=== PATIENT | female | born 1970 | race Caucasian/White ===

== ENCOUNTER → 2023-11-28 10:42 | Outpatient (POV) | payer MEDICAID, SELFPAY ==
[2023-11-28 11:12] VITALS: BP 126/65; PULSE 103; RESP 20; O2SAT 94; BMI 36.3
--- NOTE | 2023-11-28 12:28 | EXP.PAIN.OV ---
HPI Data of Consult Patient: new to practice Consult date: 11/28/23 Requesting Physician: Viji Ayala APRN Consult Narrative Reason for consult: Low back pain, leg pain History of present illness: Ms. Fuentes is a 53 year old female who presents today from the [facility] ([facility] location. They were treating the patient for degenerative disc disease of lumbar spine with lumbar radiculopathy symptoms. Today she rates her pain a 10 out of 10. Patient states her pain still continues to be in her low back with radiating symptoms into her lower extremities. Patient does state that this has been going on for years but progressively worsening over the last couple of months. Patient does describe it as a achy sensation with occasional sharp shooting pains and numbness and tingling into her lower extremities. Patient denies any specific trauma or injury that initially led to the symptoms. Patient has tried fwby-fyf-waydtsu medications such as Tylenol and ibuprofen along with heat and ice and topicals with no additional relief. Patient has had physical therapy in the past with no additional improvement. Patient denies ever seeing a neurosurgeon. Patient is currently managed with pregabalin 100 mg 3 times a day and alprazolam 1 mg from outside providers. Patient does state the pain has caused her to have no quality of life and she is in constant pain. She is interested in any help we may be able to provide. Patient did have a lumbar epidural steroid injection done at the [facility] location of L4-L5 back in July however she stated that it ended up only helping for a few days and then had worsening pain after. Her Sergio has been reviewed and is appropriate. CC: Viji Ayala APRN [facility] Disclaimer: The information contained in this section may have been updated after the patient was seen, as this information can be updated by other users. Medical History (Updated 11/28/23 @ 12:35 by Viji Ayala APRN) ADHD Anxiety Asthma Bipolar 1 disorder COPD (chronic obstructive pulmonary disease) Degenerative disc disease Fibromyalgia GERD (gastroesophageal reflux disease) HLD (hyperlipidemia) Osteoarthritis Surgical History (Updated 11/28/23 @ 11:14 by Aurea Cheney RN) H/O: hysterectomy History of carpal tunnel surgery Hx of appendectomy Hx of cholecystectomy Family History (Updated 11/28/23 @ 11:14 by Aurea Cheney RN) Other No significant family history Social History (Updated 11/28/23 @ 11:14 by Aurea Cheney RN) Smoking Status: Current every day smoker alcohol intake: never current occupational status: other Travel in the last 8 weeks: None Review of Systems Review of Systems Review of systems:: pertinent systems reviewed and negative unless documented below Review of systems (narrative): Review of Systems: General: No recent weight changes, no fever, no sleep disturbances Respiratory: No cough, no shortness of air, no recurring pulmonary infections Cardiovascular/peripheral vascular: No chest pain, no palpitations, no edema, no shortness of breath Gastrointestinal: No new onset incontinence, normal bowel movements reported Genitourinary: No new onset incontinence Musculoskeletal: Low back pain, leg pain Psychiatric: [Normal mood/affect] Neurological: [Denies weakness in extremities], [denies balance issues] Meds Home Medications and Allergies Home Medications Medication Instructions Recorded Confirmed Type albuterol sulfate 2.5 mg/3 mL 2.5 mg inhalation QID 11/28/23 11/28/23 History (0.083 %) solution for nebulization budesonide-formoterol HFA 160 2 puff inhalation BID 11/28/23 11/28/23 History mcg-4.5 mcg/actuation aerosol inhaler budesonide-formoterol HFA 160 2 puff inhalation BID 11/28/23 11/28/23 History mcg-4.5 mcg/actuation aerosol inhaler (Symbicort) cholecalciferol (vitamin D3) 50 50 mcg PO DAILY 11/28/23 11/28/23 History mcg (2,000 unit) capsule cyanocobalamin (vitamin B-12) 1,000 mcg PO DAILY 11/28/23 11/28/23 History 1,000 mcg tablet (Vitamin B-12) duloxetine 60 mg capsule,delayed 60 mg PO BID 11/28/23 11/28/23 History release ergocalciferol (vitamin D2) 1,250 1,250 mcg PO DAILY 11/28/23 11/28/23 History mcg (50,000 unit) capsule hydrochlorothiazide 25 mg tablet 25 mg PO DAILY 11/28/23 11/28/23 History hydroxyzine pamoate 100 mg capsule 100 mg PO TIDP PRN Anxiety 11/28/23 11/28/23 History ipratropium 0.5 mg-albuterol 3 mg 3 ml inhalation TIDP PRN SOA 11/28/23 11/28/23 History (2.5 mg base)/3 mL nebulization soln levothyroxine 50 mcg tablet 50 mcg PO DAILY 11/28/23 11/28/23 History loratadine 10 mg tablet (Allergy 10 mg PO DAILY 11/28/23 11/28/23 History Relief (loratadine)) montelukast 10 mg tablet 10 mg PO DAILY 11/28/23 11/28/23 History omeprazole 40 mg capsule,delayed 40 mg PO AC 11/28/23 11/28/23 History release potassium chloride 20 mEq 20 meq PO BID 11/28/23 11/28/23 History tablet,extended release pregabalin 100 mg capsule 100 mg PO TID 11/28/23 11/28/23 History ropinirole 5 mg tablet 5 mg PO HS 11/28/23 11/28/23 History rosuvastatin 5 mg tablet 5 mg PO HS 11/28/23 11/28/23 History varenicline 1 mg tablet 1 mg PO BID 11/28/23 11/28/23 History ziprasidone HCl 60 mg capsule 60 mg PO BID 11/28/23 11/28/23 History ziprasidone HCl 60 mg capsule 60 mg PO BID 11/28/23 11/28/23 History (Maria Luisa) New Prescriptions to Start Prescriptions: Allergies Allergy/AdvReac Type Severity Reaction Status Date / Time amoxicillin Allergy Verified 11/28/23 11:33 aspirin Allergy Verified 11/28/23 11:33 azithromycin Allergy Verified 11/28/23 11:33 bupropion Allergy Verified 11/28/23 11:33 celecoxib Allergy Verified 11/28/23 11:33 cephalexin Allergy Verified 11/28/23 11:33 clavulanic acid Allergy Verified 11/28/23 11:33 doxepin Allergy Verified 11/28/23 11:33 escitalopram Allergy Verified 11/28/23 11:33 fentanyl Allergy Verified 11/28/23 11:33 fluoxetine Allergy Verified 11/28/23 11:33 guaifenesin Allergy Verified 11/28/23 11:33 haloperidol Allergy Verified 11/28/23 11:33 levofloxacin Allergy Verified 11/28/23 11:33 lidocaine Allergy Verified 11/28/23 11:33 lithium Allergy Verified 11/28/23 11:33 meclizine Allergy Verified 11/28/23 11:33 ondansetron Allergy Verified 11/28/23 11:33 paroxetine Allergy Verified 11/28/23 11:33 pentazocine Allergy Verified 11/28/23 11:33 phenelzine Allergy Verified 11/28/23 11:33 quetiapine Allergy Verified 11/28/23 11:33 quinine Allergy Verified 11/28/23 11:33 ranitidine Allergy Verified 11/28/23 11:33 sertraline Allergy Verified 11/28/23 11:33 Sulfa (Sulfonamide Allergy Verified 11/28/23 11:33 Antibiotics) topiramate Allergy Verified 11/28/23 11:33 tramadol Allergy Verified 11/28/23 11:33 venlafaxine Allergy Verified 11/28/23 11:33 zolpidem Allergy Verified 11/28/23 11:33 naproxen AdvReac Verified 11/28/23 11:33 Objective Vital signs: Pulse Resp BP Pulse Ox O2 Del Method 103 H 20 126/65 94 L Room Air 11/28/23 11:12 11/28/23 11:12 11/28/23 11:12 11/28/23 11:12 11/28/23 11:12 Narrative: Physical Exam: General: Alert and oriented x3, no acute distress, pleasant and cooperative Lungs: Respirations even and unlabored, symmetrical chest expansion Eyes: PERRL Musculoskeletal: Flexion and extension of lumbar [spine] somewhat guarded secondary to pain, [antalgic gait noted] Neurological: Speech clear, no gross sensory deficit Additional findings Additional findings: MRI lumbar spine without contrast 09/03/2023 Findings: Paraspinal soft tissues grossly unremarkable. Marrow signal is generally age-appropriate. Distal cord and conus medullaris have a grossly normal appearance with the tip of the conus at the level of L1. T10 through T11 through L3-L4 disc are intact and unremarkable. Foramen are patent. L4-L5: Disc desiccation with mild degenerative narrowing. Minimal disc bulge augmented by a central disc protrusion. Moderate hypertrophic ligament and facet changes. These combined to produce mild spinal stenosis. Disc margin approximately both L5 nerve roots without displacement. Foramen patent. L5-S1: Advanced degenerative narrowing of the disc with desiccation. Severe type I/II degenerative endplate changes with reactive marrow edema in the opposing vertebra as well. There are chronic bilateral L5 pars fractures allowing for grade 2 anterior listhesis of L5 significantly progressed from prior study. Minimal disc bulge slightly eccentric to the right with a small central disc protrusion. No direct nerve root impingement by the disc. Thecal sac distortion. There is severe bilateral foraminal stenosis Assessment and Plan *Assessment and plan (1) Degenerative disc disease, lumbar: Status: Acute Category: Medical Code(s): M51.36 - Other intervertebral disc degeneration, lumbar region (2) Lumbar radiculopathy: Status: Acute Category: Medical Code(s): M54.16 - Radiculopathy, lumbar region (3) Chronic pain syndrome: Status: Acute Category: Medical Code(s): G89.4 - Chronic pain syndrome (4) Lumbar spinal stenosis: Status: Acute Qualifiers: Neurogenic claudication status: with neurogenic claudication Qualified Code(s): M48.062 - Spinal stenosis, lumbar region with neurogenic claudication Category: Medical Code(s): M48.061 - Spinal stenosis, lumbar region without neurogenic claudication Plan Patient continues to experience significant pain throughout her low back and legs with limited range of motion of her lumbar spine. I have discussed with the patient that she may benefit from a lumbar epidural steroid injection at the L5-S1 level due to her findings on her lumbar imaging. Risk and benefits were discussed with the patient however patient does have concerns since this is only a temporary solution. I have also discussed with the patient that I will send her for neurosurgery consult to Dr. Montoya's office for evaluation. I will also send her for a psychological evaluation for possible spinal cord stimulator trial in the future. Risk and benefits of this procedure and educational handouts were given to the patient during today's visit. She is agreeable with this plan of care. I will order the patient a compounded cream. Patient will return to clinic in 1 month for reevaluation of symptoms and plan of care. Patient has been instructed to contact the clinic with any concerns before the next appointment. Dr. Woods has reviewed this note and agrees with this plan of care. This note was dictated using voice recognition software and make contain errors or omissions.
== END ==
LOC: SC.PAIN 10:43
PROVIDERS: Visit Provider Nurse Practitioner Family
DX: M51.16 Intervertebral disc disorders with radiculopathy, lumbar region (principal); G89.4 Chronic pain syndrome; M48.062 Spinal stenosis, lumbar region with neurogenic claudication
CPT/HCPCS: 99202; G0463

== ENCOUNTER 2023-12-25 09:46 | Outpatient (POV) | payer MEDICAID, SELFPAY ==
[2023-12-25 10:16] VITALS: BP 152/65; PULSE 95; RESP 18; O2SAT 92; BMI 36.5
--- NOTE | 2023-12-25 10:40 | EXP.PAIN.SOA ---
[facility] Pain Management SOAP Note Subjective:: Patient is a pleasant 53-year-old female who presents today for follow-up. Today she rates her pain a 9 out of 10. Patient states that she did recently have a fall 2 days ago that ended up spraining her right ankle. Patient does present with the boot on. She does state that she did not go to be evaluated from this fall and states that she did end up landing on her buttocks area. She describes this as a aching, throbbing sensation with shooting pains down into her legs. She does question whether or not if she has done something more severe. Patient states she did get the compounded cream from our last visit and states it did not really seem to help any on her back and legs. Patient is currently managed with pregabalin, alprazolam and methocarbamol from outside providers. Patient does state that she has tried Skelaxin, tizanidine, Flexeril and baclofen with minimal relief. Patient does also state that she is scheduled for her psychological appointment coming up soon. She also states that her appointment with Dr. Montoya is next month. Her Sergio has been reviewed and is appropriate. Review of Systems: General: No recent weight changes, no fever, no sleep disturbances Respiratory: No cough, no shortness of air, no recurring pulmonary infections Cardiovascular/peripheral vascular: No chest pain, no palpitations, no edema, no shortness of breath Gastrointestinal: No new onset incontinence, normal bowel movements reported Genitourinary: No new onset incontinence Musculoskeletal: Buttocks pain, right ankle pain Psychiatric: [Normal mood/affect] Neurological: [Denies weakness in extremities], [denies balance issues] Objective:: Physical Exam: General: Alert and oriented x3, no acute distress, pleasant and cooperative Lungs: Respirations even and unlabored, symmetrical chest expansion Eyes: PERRL Musculoskeletal: Flexion and extension of sacrum [spine] somewhat guarded secondary to pain, [antalgic gait noted] Neurological: Speech clear, no gross sensory deficit Assessment:: Degenerative disc disease of lumbar spine with lumbar radiculopathy symptoms, buttocks pain, right ankle pain Plan:: Patient is experiencing worsening pain in her buttocks with shooting pains down related to her recent fall. I have discussed with the patient due to her worsening pain symptoms I will order x-ray of her sacrum/coccyx for evaluation of possible fracture. I will also send in a 5-day dose of prednisone 20 mg twice daily. Patient will return to clinic in 2 weeks for reevaluation of symptoms and plan of care Patient has been instructed to contact the clinic with any concerns before the next appointment. Dr. Woods has reviewed this note and agrees with this plan of care. This note was dictated using voice recognition software and make contain errors or omissions. [facility] Disclaimer: The information contained in this section may have been updated after the patient was seen, as this information can be updated by other users. Medical History (Updated 11/28/23 @ 12:35 by Viji Ayala APRN) Bipolar 1 disorder ADHD Anxiety Fibromyalgia Osteoarthritis GERD (gastroesophageal reflux disease) Asthma COPD (chronic obstructive pulmonary disease) HLD (hyperlipidemia) Degenerative disc disease Surgical History (Updated 11/28/23 @ 11:14 by Aurea Cheney RN) Hx of appendectomy H/O: hysterectomy Hx of cholecystectomy History of carpal tunnel surgery Family History (Updated 11/28/23 @ 11:14 by Aurea Cheney RN) Other No significant family history Social History (Updated 11/28/23 @ 11:14 by Aurea Cheney RN) Smoking Status: Current every day smoker alcohol intake: never current occupational status: other Travel in the last 8 weeks: None
--- NOTE | 2023-12-25 10:50 | XR_ITS ---
FINAL REPORT CLINICAL HISTORY: BUTTOCKS PAIN COMPARISON: None FINDINGS: AP and lateral views of the sacrum and coccyx were obtained. There is no prior exam for comparison. There is no acute fracture or other acute osseous abnormality. The SI joints are symmetric bilaterally. The sacrococcygeal articulation appears within normal limits. There is 7 mm of anterolisthesis of L5 on S1. There may be L5 pars defects, and CT could evaluate. There is marked disc space narrowing at the L5-S1 level with vacuum phenomenon. No acute soft tissue abnormality is present. IMPRESSION: No acute abnormality of the sacrum or coccyx. 7 millimeter anterolisthesis of L5 on S1, with possible pars defects. CT could evaluate if clinically indicated. There is disc space narrowing and vacuum phenomenon at the L5-S1 disc space level. Reviewed, Interpreted and Dictated by Luis Miguel Molina III, MD Transcribed by Chioma Mays Authenticated and [facility]
== END 2023-12-25 23:59 | disposition home or self-care (01) ==
PROVIDERS: Visit Provider Nurse Practitioner Family
DX: M51.16 Intervertebral disc disorders with radiculopathy, lumbar region (principal); M79.18 Myalgia, other site; M25.571 Pain in right ankle and joints of right foot
CPT/HCPCS: 72220; 99212; G0463

== ENCOUNTER 2024-01-08 12:51 | Outpatient (POV) | payer MEDICAID, SELFPAY ==
--- NOTE | 2024-01-08 13:04 | EXP.PAIN.SOA ---
[facility] Pain Management SOAP Note Subjective:: Patient is a pleasant 53-year-old female who presents today for follow-up of sacrum and coccyx x-ray. Today she rates her pain a 9 out of 10. She denies any new injury or trauma. She does state that she continues to have pain in and around her buttocks from her fall that she suffered last month. Patient does describe this as a constant aching, throbbing sensation with shooting pains down into her legs. Patient does state the pain is affecting her ability perform activities of daily living such as cooking or cleaning or even simple ambulation and sleep. Patient states that she is experiencing severe pain related to this pain. Patient has tried and failed conservative therapy such as oral medication, heat and ice, topicals, at home exercise and stretching for longer than 6 weeks. Patient did also go in for her psychological evaluation for possible pump trial. She is prescribed compounded cream from our office and alprazolam and pregabalin from outside providers. Her Sergio has been reviewed and is appropriate. Review of Systems: General: No recent weight changes, no fever, no sleep disturbances Respiratory: No cough, no shortness of air, no recurring pulmonary infections Cardiovascular/peripheral vascular: No chest pain, no palpitations, no edema, no shortness of breath Gastrointestinal: No new onset incontinence, normal bowel movements reported Genitourinary: No new onset incontinence Musculoskeletal: Buttocks pain, tailbone pain, leg pain Psychiatric: [Normal mood/affect] Neurological: [Denies weakness in extremities], [denies balance issues] Objective:: Physical Exam: General: Alert and oriented x3, no acute distress, pleasant and cooperative Lungs: Respirations even and unlabored, symmetrical chest expansion Eyes: PERRL Musculoskeletal: Flexion and extension of lumbar [spine] somewhat guarded secondary to pain, [antalgic gait noted] point tenderness along sacrum Neurological: Speech clear, no gross sensory deficit FINDINGS: AP and lateral views of the sacrum and coccyx were obtained. There is no prior exam for comparison. There is no acute fracture or other acute osseous abnormality. The SI joints are symmetric bilaterally. The sacrococcygeal articulation appears within normal limits. There is 7 mm of anterolisthesis of L5 on S1. There may be L5 pars defects, and CT could evaluate. There is marked disc space narrowing at the L5-S1 level with vacuum phenomenon. No acute soft tissue abnormality is present. IMPRESSION: No acute abnormality of the sacrum or coccyx. 7 millimeter anterolisthesis of L5 on S1, with possible pars defects. CT could evaluate if clinically indicated. There is disc space narrowing and vacuum phenomenon at the L5-S1 disc space level. Reviewed, Interpreted and Dictated by Luis Miguel Molina III, MD Transcribed by Chioma Mays Authenticated and [facility] Assessment:: Degenerative disc disease of lumbar spine with lumbar radiculopathy symptoms, lumbar spinal stenosis, chronic pain syndrome, buttocks pain Plan:: Patient is experiencing significant pain in her tailbone and buttocks area. Patient did have limited range of motion of her lumbar spine and point tenderness along her sacrum. Patient denies Radiating symptoms into her legs. I have discussed with patient that she may benefit from a caudal epidural. Risk and benefits were discussed with the patient and she would like to proceed forward with this plan of care. Patient is not on any blood thinners. I did also review over the patient's psychological evaluation with their findings. Patient was found not to be an appropriate candidate at this time due to severe anxiety and depression. I have counseled the patient that I do recommend that she follow-up with her psychiatrist about adjusting her current medications. Patient states that she has been on these for years and does not feel like they are helping as well. We will follow-up with this at future visits. We will schedule the patient for caudal epidural under fluoroscopy. Patient has been instructed to contact the clinic with any concerns before the next appointment. Dr. Woods has reviewed this note and agrees with this plan of care. This note was dictated using voice recognition software and make contain errors or omissions. [facility] Disclaimer: The information contained in this section may have been updated after the patient was seen, as this information can be updated by other users. Medical History (Updated 01/02/24 @ 15:20 by Zoya Russell [facility]) Bipolar 1 disorder ADHD Anxiety Fibromyalgia Osteoarthritis GERD (gastroesophageal reflux disease) Asthma COPD (chronic obstructive pulmonary disease) HLD (hyperlipidemia) Degenerative disc disease Surgical History (Updated 11/28/23 @ 11:14 by Aurea Cheney RN) Hx of appendectomy H/O: hysterectomy Hx of cholecystectomy History of carpal tunnel surgery Family History (Updated 11/28/23 @ 11:14 by Aurea Cheney RN) Other No significant family history Social History (Updated 11/28/23 @ 11:14 by Aurea Cheney RN) Smoking Status: Current every day smoker alcohol intake: never current occupational status: other Travel in the last 8 weeks: None
[2024-01-08 13:18] VITALS: BP 126/67; PULSE 96; RESP 20; O2SAT 95; BMI 35.7
== END 2024-01-08 23:59 ==
LOC: SC.PAIN 12:51
PROVIDERS: Visit Provider Nurse Practitioner Family
DX: M51.16 Intervertebral disc disorders with radiculopathy, lumbar region (principal); M48.061 Spinal stenosis, lumbar region without neurogenic claudication; G89.4 Chronic pain syndrome; M79.18 Myalgia, other site
CPT/HCPCS: 99212; G0463

== ENCOUNTER 2024-01-26 11:03 | Outpatient (POV) | payer MEDICAID, SELFPAY ==
[2024-01-26 11:11] VITALS: BP 134/62; PULSE 92; RESP 18; TEMP 36.7; O2SAT 90; BMI 35.7
--- NOTE | 2024-01-26 12:06 | EXP.PAIN.SOA ---
[facility] Pain Management SOAP Note Subjective:: Patient is a pleasant 53-year-old female who presents today for worsening pain. Today she rates her pain a 10 out of 10.. Patient denies any injury. She states her pain is all in her tailbone/buttocks area that does radiate down into her bilateral lower extremities. Patient states that the pain is excruciating and that she cannot stand or sit up straight for longer than 3 minutes due to a pinching sensation that she feels in her low back/buttocks area as well as her legs giving out. Patient states that she did just finished up her oral steroids and that these did not help very much. Patient is prescribed compounded cream from our office however she states she did not get significant relief. Patient does state at 1 point the [facility] location was trying to get her a TENS unit however this was denied by her insurance due to not having enough information regarding this. Patient does state that she has a neurology follow-up on February 16. Patient denies any heart or kidney issues. Her Sergio has been reviewed. Review of Systems: General: No recent weight changes, no fever, no sleep disturbances Respiratory: No cough, no shortness of air, no recurring pulmonary infections Cardiovascular/peripheral vascular: No chest pain, no palpitations, no edema, no shortness of breath Gastrointestinal: No new onset incontinence, normal bowel movements reported Genitourinary: No new onset incontinence Musculoskeletal: Low back/buttocks pain, leg pain Psychiatric: [Normal mood/affect] Neurological: [Denies weakness in extremities], [denies balance issues] Objective:: Physical Exam: General: Alert and oriented x3, no acute distress, pleasant and cooperative Lungs: Respirations even and unlabored, symmetrical chest expansion Eyes: PERRL Musculoskeletal: Flexion and extension of lumbar [spine] somewhat guarded secondary to pain, [antalgic gait noted] Neurological: Speech clear, no gross sensory deficit Assessment:: Degenerative disc disease of lumbar spine with lumbar radiculopathy symptoms, lumbar spinal stenosis, chronic pain syndrome, buttocks pain/tailbone pain Plan:: Patient continues to experience significant low back/buttocks pain with radiating symptoms into her legs. Patient had limited range of motion of her lumbar spine during today's visit. I have discussed with the patient that we do have her scheduled for her caudal epidural on the of this month. Patient does still have symptoms consistent with this injection and hopefully she will get beneficial relief. I have discussed with patient that I will send in baclofen 10 mg twice daily as needed and provide a 14-day supply of this medication. Patient does not need to follow-up very as she is already scheduled for an injection upcoming. Patient has been instructed to contact the clinic with any concerns before the next appointment. Dr. Woods has reviewed this note and agrees with this plan of care. This note was dictated using voice recognition software and make contain errors or omissions. Patient did contact her office back to let us know that she has been given the baclofen in the past and it did not provide significant relief. Patient does state that she is currently taking methocarbamol. We will follow-up with the patient after her injection. [facility] Disclaimer: The information contained in this section may have been updated after the patient was seen, as this information can be updated by other users. Medical History Bipolar 1 disorder ADHD Anxiety Fibromyalgia Osteoarthritis GERD (gastroesophageal reflux disease) Asthma COPD (chronic obstructive pulmonary disease) HLD (hyperlipidemia) Degenerative disc disease Surgical History Hx of appendectomy H/O: hysterectomy Hx of cholecystectomy History of carpal tunnel surgery Family History Other No significant family history Social History Smoking Status: Current every day smoker alcohol intake: never current occupational status: other Travel in the last 8 weeks: None
== END 2024-01-26 23:59 | disposition home or self-care (01) ==
PROVIDERS: Visit Provider Nurse Practitioner Family
DX: M51.16 Intervertebral disc disorders with radiculopathy, lumbar region (principal); M48.061 Spinal stenosis, lumbar region without neurogenic claudication; G89.4 Chronic pain syndrome; M79.18 Myalgia, other site; M53.3 Sacrococcygeal disorders, not elsewhere classified
CPT/HCPCS: 99212; G0463

== ENCOUNTER 2024-02-26 14:57 | Outpatient (POV) | payer MEDICAID, SELFPAY ==
[2024-02-26 15:06] VITALS: BP 109/71; PULSE 100; RESP 18; O2SAT 100; BMI 38.4
--- NOTE | 2024-02-26 15:47 | EXP.PAIN.SOA ---
[facility] Pain Management SOAP Note Subjective:: Patient is a pleasant 53-year-old female who presents today for follow-up. Today she rates her pain a 10 out of 10. Patient denies any new trauma or injury. She does state that she continues to have the same pain that she has been having there in her tailbone. She states that she cannot apply any pressure or sit due to the worsening pain and that it will send shooting symptoms down into her legs. Patient was scheduled for a caudal epidural however she states that she was unable to have transportation to our office for this injection so she had to cancel it. Patient does state that she still is interested in doing this injection. Patient has been tried on baclofen, methocarbamol and just recently tizanidine however she states she still had no additional improvement. Patient has been tried on oral medication, heat and ice, compounded cream from our office with minimal relief. Patient has continued to try and get a TENS unit. Patient does state that she did follow-up with neurology and that they are doing updated imaging as well as a nerve conduction study. Her Sergio has been reviewed and is appropriate. Review of Systems: General: No recent weight changes, no fever, no sleep disturbances Respiratory: No cough, no shortness of air, no recurring pulmonary infections Cardiovascular/peripheral vascular: No chest pain, no palpitations, no edema, no shortness of breath Gastrointestinal: No new onset incontinence, normal bowel movements reported Genitourinary: No new onset incontinence Musculoskeletal: Tailbone pain Psychiatric: [Normal mood/affect] Neurological: [Denies weakness in extremities], [denies balance issues] Objective:: Physical Exam: General: Alert and oriented x3, no acute distress, pleasant and cooperative Lungs: Respirations even and unlabored, symmetrical chest expansion Eyes: PERRL Musculoskeletal: Flexion and extension of lumbar [spine] somewhat guarded secondary to pain, [antalgic gait noted] point tenderness along lower sacral spine/coccyx area Neurological: Speech clear, no gross sensory deficit Assessment:: Degenerative disc disease of lumbar spine with lumbar radiculopathy symptoms, chronic pain syndrome, lumbar spinal stenosis, buttocks/tailbone pain Plan:: Patient continues to experience significant pain throughout her buttocks and tailbone area with radiating numbness and tingling. I have counseled the patient that I do believe she would still benefit from the caudal epidural. Risk and benefits were discussed with the patient and she would like to proceed forward with this plan of care. We will all see if we are still within the timeframe to still have the caudal already approved or if we need to resubmit for this injection. Patient will be scheduled for a caudal epidural under fluoroscopy. I did also discussed with patient that we could try Skelaxin however she states it is not covered by her insurance. I have counseled the patient that we will not be able to do any opioid medications. Patient acknowledges understanding. Patient has been instructed to contact the clinic with any concerns before the next appointment. Dr. Woods has reviewed this note and agrees with this plan of care. This note was dictated using voice recognition software and make contain errors or omissions. [facility] Disclaimer: The information contained in this section may have been updated after the patient was seen, as this information can be updated by other users. Medical History Bipolar 1 disorder ADHD Anxiety Fibromyalgia Osteoarthritis GERD (gastroesophageal reflux disease) Asthma COPD (chronic obstructive pulmonary disease) HLD (hyperlipidemia) Degenerative disc disease Surgical History Hx of appendectomy H/O: hysterectomy Hx of cholecystectomy History of carpal tunnel surgery Family History Other No significant family history Social History Smoking Status: Current every day smoker alcohol intake: never current occupational status: other Travel in the last 8 weeks: None
== END 2024-02-26 23:59 | disposition home or self-care (01) ==
LOC: SC.PAIN 14:58
PROVIDERS: PCP Family Medicine; Visit Provider Nurse Practitioner Family
DX: M51.16 Intervertebral disc disorders with radiculopathy, lumbar region (principal); G89.4 Chronic pain syndrome; M48.061 Spinal stenosis, lumbar region without neurogenic claudication; M53.3 Sacrococcygeal disorders, not elsewhere classified; M79.18 Myalgia, other site
CPT/HCPCS: 99212; G0463

== ENCOUNTER 2024-03-16 07:29 | Day surgery (SDC) | payer MEDICAID, SELFPAY ==
[2024-03-16 08:29] VITALS: BP 115/66; PULSE 91; RESP 18; TEMP 36.2; O2SAT 93; BMI 37.7
[2024-03-16] MEDS: LIDOCAINE 1% 5ML PF VIAL 5 ML (08:59)
[2024-03-16] MEDS: methylPREDNISolone ACETATE 80MG/ML VIAL 80 MG (08:59)
[2024-03-16 09:00] VITALS: BP 126/64; PULSE 88; RESP 18; TEMP 36.2; O2SAT 95
[2024-03-16] MEDS: IOPAMIDOL-200 (41%);10ML VIAL 10 ML IV (09:02)
--- NOTE | 2024-03-16 09:03 | P.PCN_ITS ---
Procedure Date: 03/16/24 Time: 09:00 Anesthesiologist:: Jabier Brar CRNA Complications:: None Pre-procedure Diagnosis:: Degenerative disc lumbar spine multilevels. Lumbar radiculopathy. Post-procedure Diagnosis:: Same. Indications for Procedure:: Patient is a pleasant 53-year-old female comes our clinic today for caudal epidural steroid injection. Patient did not respond very well to to a previous lumbar epidural steroid injection at the L4-5 level. Patient describes low back pain as constant, dull, aching. Buttock pain and coccydynia is her main complaint. She rates her pain 10/10. Procedure Details:: Details of the procedure explained to the patient. The patient taken procedure and placed in the prone position on the fluoroscopy table. The area over the sacrum was cleansed using chlorhexidine's cleansing solution. Using fluoroscopy guidance in the lateral position a 22-gauge 3 and half inch spinal needle was used to access the caudal epidural space with ease. Needle position was confirmed using 0.5 cc of contrast dye and a cephalad spread. After negative aspiration a solution of 6 cc containing 1 cc of 1% lidocaine 5 cc of normal saline and 80 mg of Depo-Medrol was injected. Patient tolerated procedure witho ut difficulty. There are no complications. Plan and Disposition:: Patient was discharged without incident.
== END 2024-03-16 09:00 | disposition home or self-care (01) ==
PROVIDERS: PCP Family Medicine; Visit Provider Nurse Anesthetist, Certified Registered
DX: M51.16 Intervertebral disc disorders with radiculopathy, lumbar region (principal)
CPT/HCPCS: 62323; J1010; Q9966

== ENCOUNTER 2024-04-07 10:10 | Outpatient (POV) | payer MEDICAID, SELFPAY ==
[2024-04-07 10:26] VITALS: BP 144/73; PULSE 87; RESP 18; O2SAT 94; BMI 36.6
--- NOTE | 2024-04-07 10:47 | EXP.PAIN.SOA ---
[facility] Disclaimer: The information contained in this section may have been updated after the patient was seen, as this information can be updated by other users. Medical History Bipolar 1 disorder ADHD Anxiety Fibromyalgia Osteoarthritis GERD (gastroesophageal reflux disease) Asthma COPD (chronic obstructive pulmonary disease) HLD (hyperlipidemia) Degenerative disc disease Surgical History Hx of appendectomy H/O: hysterectomy Hx of cholecystectomy History of carpal tunnel surgery Family History Other No significant family history Social History Smoking Status: Current every day smoker alcohol intake: never current occupational status: other Travel in the last 8 weeks: None PM Subjective & Objective Subjective Subjective:: Patient is a pleasant 53-year-old female who presents today for follow-up of caudal epidural on 03/16/2024. Today she rates her pain a 10 out of 10. Patient denies any new injuries or traumas. She states that this injection only seem to aggravate her overall pain. Patient states it is constant and severe. She does state that she just recently had steroids and they did not seem to do much. Patient at our last visit was prescribed that Skelaxin however insurance did not cover it. Patient states she has been doing the methocarbamol 750 mg 3 times daily and that it helps somewhat but still seems like it could use some additional adjustment. Patient was prescribed compounded cream in the past however did not get significant relief. Patient does state that she did recently have updated x-ray imaging at [facility] in [place] and that she is scheduled for an MRI on the . Patient states the updated imaging is all related to what the neurosurgeon is requesting before they determine what they would be able to help with. Her Sergio has been reviewed and is appropriate. Review of Systems: General: No recent weight changes, no fever, no sleep disturbances Respiratory: No cough, no shortness of air, no recurring pulmonary infections Cardiovascular/peripheral vascular: No chest pain, no palpitations, no edema, no shortness of breath Gastrointestinal: No new onset incontinence, normal bowel movements reported Genitourinary: No new onset incontinence Musculoskeletal: Low back pain, buttocks pain Psychiatric: [Normal mood/affect] Neurological: [Denies weakness in extremities], [denies balance issues] Pain at rest (0-10 scale): 10 Objective Objective:: Physical Exam: General: Alert and oriented x3, no acute distress, pleasant and cooperative Lungs: Respirations even and unlabored, symmetrical chest expansion Eyes: PERRL Musculoskeletal: Flexion and extension of [] [spine] somewhat guarded secondary to pain, [antalgic gait noted] Neurological: Speech clear, no gross sensory deficit Has patient had previous pain injection?: Yes Percent improvement in pain since last injection: 0 Conservative treatment options previously tried: NSAIDS Length of treatment: >6 weeks, Home exercise plan Length of treatment: >6 weeks and Prescription medications Length of treatment: >6 weeks Meds Home Medications and Allergies Home Medications Medication Instructions Recorded Confirmed Type albuterol sulfate 2.5 mg/3 mL 2.5 mg inhalation QID 11/28/23 04/07/24 History (0.083 %) solution for nebulization budesonide-formoterol HFA 160 2 puff inhalation BID 11/28/23 04/07/24 History mcg-4.5 mcg/actuation aerosol inhaler budesonide-formoterol HFA 160 2 puff inhalation BID 11/28/23 04/07/24 History mcg-4.5 mcg/actuation aerosol inhaler (Symbicort) cholecalciferol (vitamin D3) 50 50 mcg PO DAILY 11/28/23 04/07/24 History mcg (2,000 unit) capsule cyanocobalamin (vitamin B-12) 1,000 mcg PO DAILY 11/28/23 04/07/24 History 1,000 mcg tablet (Vitamin B-12) duloxetine 60 mg capsule,delayed 60 mg PO BID 11/28/23 04/07/24 History release ergocalciferol (vitamin D2) 1,250 1,250 mcg PO DAILY 11/28/23 04/07/24 History mcg (50,000 unit) capsule hydrochlorothiazide 25 mg tablet 25 mg PO DAILY 11/28/23 04/07/24 History hydroxyzine pamoate 100 mg capsule 100 mg PO TIDP PRN Anxiety 11/28/23 04/07/24 History ipratropium 0.5 mg-albuterol 3 mg 3 ml inhalation TIDP PRN SOA 11/28/23 04/07/24 History (2.5 mg base)/3 mL nebulization soln loratadine 10 mg tablet (Allergy 10 mg PO DAILY 11/28/23 04/07/24 History Relief (loratadine)) montelukast 10 mg tablet 10 mg PO DAILY 11/28/23 04/07/24 History omeprazole 40 mg capsule,delayed 40 mg PO AC 11/28/23 04/07/24 History release potassium chloride 20 mEq 20 meq PO BID 11/28/23 04/07/24 History tablet,extended release pregabalin 100 mg capsule 100 mg PO TID 11/28/23 04/07/24 History ropinirole 5 mg tablet 5 mg PO HS 11/28/23 04/07/24 History rosuvastatin 5 mg tablet 10 mg PO HS 11/28/23 04/07/24 History ziprasidone HCl 60 mg capsule 60 mg PO BID 11/28/23 04/07/24 History (Geodon) alendronate 35 mg tablet 35 mg PO WEEKLY 03/16/24 04/07/24 History methocarbamol 750 mg tablet 750 mg PO QID 03/16/24 04/07/24 History New Prescriptions to Start Prescriptions: Allergies Allergy/AdvReac Type Severity Reaction Status Date / Time amoxicillin Allergy Verified 11/28/23 11:33 aspirin Allergy Verified 11/28/23 11:33 azithromycin Allergy Verified 11/28/23 11:33 bupropion Allergy Verified 11/28/23 11:33 celecoxib Allergy Verified 11/28/23 11:33 cephalexin Allergy Verified 11/28/23 11:33 clavulanic acid Allergy Verified 11/28/23 11:33 doxepin Allergy Verified 11/28/23 11:33 escitalopram Allergy Verified 11/28/23 11:33 fentanyl Allergy Verified 11/28/23 11:33 fluoxetine Allergy Verified 11/28/23 11:33 guaifenesin Allergy Verified 11/28/23 11:33 haloperidol Allergy Verified 11/28/23 11:33 levofloxacin Allergy Verified 11/28/23 11:33 lidocaine Allergy Verified 11/28/23 11:33 lithium Allergy Verified 11/28/23 11:33 meclizine Allergy Verified 11/28/23 11:33 ondansetron Allergy Verified 11/28/23 11:33 paroxetine Allergy Verified 11/28/23 11:33 pentazocine Allergy Verified 11/28/23 11:33 phenelzine Allergy Verified 11/28/23 11:33 quetiapine Allergy Verified 11/28/23 11:33 quinine Allergy Verified 11/28/23 11:33 ranitidine Allergy Verified 11/28/23 11:33 sertraline Allergy Verified 11/28/23 11:33 Sulfa (Sulfonamide Allergy Verified 11/28/23 11:33 Antibiotics) topiramate Allergy Verified 11/28/23 11:33 tramadol Allergy Verified 11/28/23 11:33 venlafaxine Allergy Verified 11/28/23 11:33 zolpidem Allergy Verified 11/28/23 11:33 naproxen AdvReac Verified 11/28/23 11:33 Assessment and Plan *Assessment and plan (1) Chronic pain syndrome: Status: Acute Category: Medical Code(s): G89.4 - Chronic pain syndrome (2) Lumbar spinal stenosis: Status: Acute Qualifiers: Neurogenic claudication status: with neurogenic claudication Qualified Code(s): M48.062 - Spinal stenosis, lumbar region with neurogenic claudication Category: Medical Code(s): M48.061 - Spinal stenosis, lumbar region without neurogenic claudication (3) Lumbar radiculopathy: Status: Acute Category: Medical Code(s): M54.16 - Radiculopathy, lumbar region (4) Degenerative disc disease, lumbar: Status: Acute Category: Medical Code(s): M51.36 - Other intervertebral disc degeneration, lumbar region Plan Patient is experiencing significant pain still throughout her low back and buttocks area. I have counseled the patient due to her recent steroid use that we will not be able to prescribe any additional steroids today. I will send in a new prescription of the methocarbamol and change it to 1000 mg 3 times daily. We will follow-up with the patient after she has had her MRI and follow-up with Dr. Montoya's office for reevaluation of symptoms and plan of care. Patient has been instructed to contact the clinic with any concerns before the next appointment. Dr. Woods has reviewed this note and agrees with this plan of care. This note was dictated using voice recognition software and make contain errors or omissions.
== END 2024-04-07 23:59 | disposition home or self-care (01) ==
PROVIDERS: Visit Provider Nurse Practitioner Family
DX: G89.4 Chronic pain syndrome (principal); M48.062 Spinal stenosis, lumbar region with neurogenic claudication; M54.16 Radiculopathy, lumbar region
CPT/HCPCS: 99212; G0463

== ENCOUNTER 2024-07-12 13:29 | Emergency (ER) | payer MEDICAID, SELFPAY ==
[2024-07-12 13:35] VITALS: BP 116/67; PULSE 94; RESP 20; TEMP 36.7; O2SAT 93; BMI 37.5
--- NOTE | 2024-07-12 13:44 | EXP.UTC ---
Discharge Plan Disposition Patient Disposition: Home, Self-Care Condition: Good Prescriptions Prescriptions: No Action hydroxyzine pamoate 100 mg capsule 100 mg PO TIDP PRN (Reason: Anxiety) Patient Comments: TAKE ONE CAPSULE BY MOUTH THREE TIMES DAILY NEEDED ipratropium-albuterol [DuoNeb] 0.5 mg-3 mg(2.5 mg base)/3 mL Solution For Nebulization 3 ml INHALATION TIDP PRN (Reason: SOA) albuterol sulfate [Proventil] 2.5 mg /3 mL (0.083 %) Solution For Nebulization 2.5 mg INHALATION QID cyanocobalamin (vitamin B-12) [Vitamin B-12] 1,000 mcg tablet 1,000 mcg PO DAILY Patient Comments: TAKE ONE TABLET BY MOUTH EVERY DAY omeprazole 40 mg capsule,delayed release(DR/EC) 40 mg PO AC Patient Comments: TAKE ONE CAPSULE BY MOUTH DAILY BEFORE MEALS montelukast 10 mg tablet 10 mg PO DAILY Patient Comments: TAKE ONE TABLET BY MOUTH EVERY DAY hydrochlorothiazide 25 mg tablet 25 mg PO DAILY Patient Comments: TAKE ONE TABLET BY MOUTH DAILY ergocalciferol (vitamin D2) 1,250 mcg (50,000 unit) capsule 1,250 mcg PO DAILY Patient Comments: TAKE ONE CAPSULE BY MOUTH DAILY ropinirole 5 mg tablet 5 mg PO HS Patient Comments: TAKE ONE TABLET BY MOUTH daily ziprasidone HCl [Geodon] 60 mg Capsule 60 mg PO BID Rx Instructions: give with food (meal/snack) loratadine [Allergy Relief (loratadine)] 10 mg tablet 10 mg PO DAILY Patient Comments: TAKE ONE TABLET BY MOUTH DAILY rosuvastatin 5 mg Tablet 10 mg PO HS duloxetine 60 mg capsule,delayed release(DR/EC) 60 mg PO BID Patient Comments: TAKE ONE CAPSULE BY MOUTH TWICE DAILY pregabalin 100 mg capsule 100 mg PO TID Patient Comments: TAKE ONE CAPSULE THREE TIMES DAILY BY MOUTH budesonide-formoterol [Symbicort] 160-4.5 mcg/actuation HFA aerosol inhaler 2 puff INHALATION BID Patient Comments: INHALE TWO puffs BY MOUTH TWICE DAILY budesonide-formoterol 160-4.5 mcg/actuation Hfa Aerosol Inhaler 2 puff INHALATION BID cholecalciferol (vitamin D3) 50 mcg (2,000 unit) capsule 50 mcg PO DAILY Patient Comments: TAKE ONE CAPSULE BY MOUTH EVERY DAY potassium chloride 20 mEq Tablet Extended Release 20 meq PO BID alendronate 35 mg tablet 35 mg PO WEEKLY Patient Comments: TAKE ONE TABLET BY MOUTH ONCE WEEKLY ON an EMPTY stomach BEFORE breakfast; remain upright FOR 30 MINUTES AND take with EIGHT OUNCES of water methocarbamol 750 mg tablet 750 mg PO QID Patient Comments: TAKE ONE TABLET BY MOUTH FOUR TIMES DAILY methocarbamol 500 mg tablet 1,000 mg PO TID Qty: 180 0RF methocarbamol 500 mg tablet 1,000 mg PO TID Qty: 180 0RF Referrals Follow up/Referrals: Provider,Referral, MD [Primary Care Provider] - See instructions Activity Restrictions/Add. Instructions Additional Instructions/Restrictions: Follow up with pain management today as you plan to do. Follow up with your regular doctor. Use the incentive spirometer 10 times every 2 hours while you are awake for the next 2 weeks. GO TO THE ER FOR ANY WORSENING SYMPTOMS Clinical Impressions Clinical Impression: Contusion of rib on right side, Rib pain, Fall Instructions Patient Instructions: How to Use an Incentive Spirometer, DI for Rib Contusion Print Language Print Language: Lithuanian Discharge ED Provider: René Eastman [facility] General Stated complaint: rib pain Time Seen by Provider: 07/12/24 13:34 History of Present Illness Provider Complaint: She states that 2 days ago she slipped on wet grass in her yard and came down on the right side of her chest. Since then she has had right sided rib pain that is worse when she coughs and deep breaths. She denies shortness of breath. She denies any neck pain, back pain or other complaints. Related Data Home Medications ?Medication ?Instructions ?Recorded ?Confirmed albuterol sulfate 2.5 mg/3 mL 2.5 mg inhalation QID 11/28/23 04/07/24 (0.083 %) solution for nebulization budesonide-formoterol HFA 160 2 puff inhalation BID 11/28/23 04/07/24 mcg-4.5 mcg/actuation aerosol inhaler budesonide-formoterol HFA 160 2 puff inhalation BID 11/28/23 04/07/24 mcg-4.5 mcg/actuation aerosol inhaler (Symbicort) cholecalciferol (vitamin D3) 50 50 mcg PO DAILY 11/28/23 04/07/24 mcg (2,000 unit) capsule cyanocobalamin (vitamin B-12) 1,000 mcg PO DAILY 11/28/23 04/07/24 1,000 mcg tablet (Vitamin B-12) duloxetine 60 mg capsule,delayed 60 mg PO BID 11/28/23 04/07/24 release ergocalciferol (vitamin D2) 1,250 1,250 mcg PO DAILY 11/28/23 04/07/24 mcg (50,000 unit) capsule hydrochlorothiazide 25 mg tablet 25 mg PO DAILY 11/28/23 04/07/24 hydroxyzine pamoate 100 mg capsule 100 mg PO TIDP PRN Anxiety 11/28/23 04/07/24 ipratropium 0.5 mg-albuterol 3 mg 3 ml inhalation TIDP PRN SOA 11/28/23 04/07/24 (2.5 mg base)/3 mL nebulization soln loratadine 10 mg tablet (Allergy 10 mg PO DAILY 11/28/23 04/07/24 Relief (loratadine)) montelukast 10 mg tablet 10 mg PO DAILY 11/28/23 04/07/24 omeprazole 40 mg capsule,delayed 40 mg PO AC 11/28/23 04/07/24 release potassium chloride 20 mEq 20 meq PO BID 11/28/23 04/07/24 tablet,extended release pregabalin 100 mg capsule 100 mg PO TID 11/28/23 04/07/24 ropinirole 5 mg tablet 5 mg PO HS 11/28/23 04/07/24 rosuvastatin 5 mg tablet 10 mg PO HS 11/28/23 04/07/24 ziprasidone HCl 60 mg capsule 60 mg PO BID 11/28/23 04/07/24 (Geodon) alendronate 35 mg tablet 35 mg PO WEEKLY 03/16/24 04/07/24 methocarbamol 750 mg tablet 750 mg PO QID 03/16/24 04/07/24 Previous Rx's ?Medication ?Instructions ?Recorded methocarbamol 500 mg tablet 1,000 mg (2 x 500 mg) PO TID #180 04/07/24 tabs methocarbamol 500 mg tablet 1,000 mg (2 x 500 mg) PO TID #180 06/09/24 tabs Allergies Allergy/AdvReac Type Severity Reaction Status Date / Time amoxicillin Allergy Verified 11/28/23 11:33 aspirin Allergy Verified 11/28/23 11:33 azithromycin Allergy Verified 11/28/23 11:33 bupropion Allergy Verified 11/28/23 11:33 celecoxib Allergy Verified 11/28/23 11:33 cephalexin Allergy Verified 11/28/23 11:33 clavulanic acid Allergy Verified 11/28/23 11:33 doxepin Allergy Verified 11/28/23 11:33 escitalopram Allergy Verified 11/28/23 11:33 fentanyl Allergy Verified 11/28/23 11:33 fluoxetine Allergy Verified 11/28/23 11:33 guaifenesin Allergy Verified 11/28/23 11:33 haloperidol Allergy Verified 11/28/23 11:33 levofloxacin Allergy Verified 11/28/23 11:33 lidocaine Allergy Verified 11/28/23 11:33 lithium Allergy Verified 11/28/23 11:33 meclizine Allergy Verified 11/28/23 11:33 ondansetron Allergy Verified 11/28/23 11:33 paroxetine Allergy Verified 11/28/23 11:33 pentazocine Allergy Verified 11/28/23 11:33 phenelzine Allergy Verified 11/28/23 11:33 quetiapine Allergy Verified 11/28/23 11:33 quinine Allergy Verified 11/28/23 11:33 ranitidine Allergy Verified 11/28/23 11:33 sertraline Allergy Verified 11/28/23 11:33 Sulfa (Sulfonamide Allergy Verified 11/28/23 11:33 Antibiotics) topiramate Allergy Verified 11/28/23 11:33 tramadol Allergy Verified 11/28/23 11:33 venlafaxine Allergy Verified 11/28/23 11:33 zolpidem Allergy Verified 11/28/23 11:33 naproxen AdvReac Verified 11/28/23 11:33 [facility] Disclaimer: The information contained in this section may have been updated after the patient was seen, as this information can be updated by other users. Medical History (Updated 07/12/24 @ 14:55 by René Eastman APRN) Bipolar 1 disorder ADHD Anxiety Fibromyalgia Osteoarthritis GERD (gastroesophageal reflux disease) Asthma COPD (chronic obstructive pulmonary disease) HLD (hyperlipidemia) Degenerative disc disease Surgical History Hx of appendectomy H/O: hysterectomy Hx of cholecystectomy History of carpal tunnel surgery Family History Other No significant family history Social History Smoking Status: Current every day smoker alcohol intake: never current occupational status: other Travel in the last 8 weeks: None ROS Obtained: Yes All systems reviewed & no additional complaints except as documented Constitutional Constitutional: Denies chills and Denies fever(s) Eyes Eyes: Denies eye discharge ENT Ears, Nose, Mouth, and Throat: Denies dizziness, Denies otalgia and Denies sore throat Cardiovascular Cardiovascular: Reports as per HPI, Denies chest pain and Denies dyspnea Respiratory Respiratory: Denies shortness of breath, Denies chest congestion, Denies cough, Denies dyspnea, Denies stridor and Denies wheezing Gastrointestinal Gastrointestingal: Denies nausea or vomiting Musculoskeletal Musculoskeletal: Reports system reviewed and no additional complaints, except as documented and Denies arthralgias Integumentary/Breasts Skin/Breast: Denies rash Neurologic Neurologic: Denies dizziness and Denies paresthesias Allergic/Immunologic Allergic/Immunologic: Denies wheezing Physical Exam General General appearance: alert and in no apparent distress Head Head exam: atraumatic, normocephalic and normal inspection Eye Eye exam: Present normal appearance, PERRL and EOMI ENT ENT exam: Present normal exam, normal oropharynx, mucous membranes moist, TM's normal bilaterally and normal external ear exam Neck Neck exam: Present normal inspection, full ROM and trachea midline; Absent tenderness, meningismus or lymphadenopathy Chest Chest inspection: Present symmetric chest wall rise and tenderness Respiratory Respiratory exam: Present normal lung sounds bilaterally; Absent respiratory distress, wheezes, stridor or accessory muscle use Cardiovascular Cardiovascular exam: Present regular rate and normal rhythm; Absent JVD Abdominal Exam Abdominal exam: Present soft and normal bowel sounds; Absent distention, tenderness or guarding Extremities Exam Extremities exam: Present normal inspection, full ROM and normal capillary refill; Absent calf tenderness Back Exam Back exam: Present normal inspection; Absent tenderness Neurological Exam Neurological exam: Present alert and oriented X3 Psychiatric Psychiatric exam: Present normal affect and normal mood Skin Skin exam: Present warm, dry, intact and normal color Lymphatic Lymphatic Findings: no adenopathy Medical Decision Making Medical Records Medical records reviewed: No I reviewed the patient's medical records. Screening: Per USPSTF and CDC recommendations, given the prevalence of disease in our region, it is our hospital?s policy to screen for HIV and viral Hepatitis for all patients aged 18 and over and those with ongoing risk factors. Sergio Inquiry Pt receiving controlled substance: No Orders (Tests/Meds): ORDERS Category Date Time Status XR ribs RT min 3V w CXR1V Stat Exams 07/12/24 13:43 Ordered Radiology Data #1: Image(s): Chest (and ribs) Image Reviewed: Yes I reviewed the patient's radiology image and Yes I have reviewed radiologist's interpretation Preliminary Findings: No Fracture Seen and No Infiltrates Seen Accession No. : [id number] Patient Name / ID : Alfredo Brewer / [id number] Exam Date : 07/12/2024 13:39:17 ( Final ) Study Comment : Sex / Age : F / 53Y Creator : LISHA DE LA CRUZ Dictator : Social Worker Delinquency Prevention : Conveyor Mechanic : LISHA DE LA CRUZ Approver2 : Report Date : 07/12/2024 15:36:52 My Comment : FINAL REPORT CLINICAL HISTORY: fall x 2 days ago. right anterior rib pain FINDINGS: A single view of the chest with 3 views of the ribs were obtained. The lungs are underinflated with bibasilar atelectasis. No pneumothorax is identified. No displaced rib fracture identified. IMPRESSION: Underinflation with bibasilar atelectasis. Reviewed, Interpreted and Dictated by Lisha De La Cruz MD Transcribed by Tita Henson Authenticated and . [facility]
[2024-07-12 15:03] VITALS: BP 116/67; PULSE 94; RESP 20; TEMP 36.7; O2SAT 93
== END 2024-07-12 15:06 | disposition home or self-care (01) ==
LOC: ER 13:32 → UTC 13:35
PROVIDERS: Emergency Provider Nurse Practitioner Family
DX: R07.81 Pleurodynia (principal); S20.211A Contusion of right front wall of thorax, initial encounter; R05.9 Cough, unspecified; W19.XXXA Unspecified fall, initial encounter
CPT/HCPCS: 71101; 99204; 99212; G0463

== ENCOUNTER 2024-09-03 07:35 | Outpatient (POV) | payer MEDICAID, SELFPAY ==
[2024-09-03 08:42] VITALS: BP 140/73; PULSE 102; RESP 22; O2SAT 94; BMI 37.5
--- NOTE | 2024-09-03 08:50 | EXP.PAIN.SOA ---
[facility] Disclaimer: The information contained in this section may have been updated after the patient was seen, as this information can be updated by other users. Medical History (Updated 07/12/24 @ 14:55 by René Eastman APRN) Bipolar 1 disorder ADHD Anxiety Fibromyalgia Osteoarthritis GERD (gastroesophageal reflux disease) Asthma COPD (chronic obstructive pulmonary disease) HLD (hyperlipidemia) Degenerative disc disease Surgical History Hx of appendectomy H/O: hysterectomy Hx of cholecystectomy History of carpal tunnel surgery Family History Other No significant family history Social History Smoking Status: Current every day smoker alcohol intake: never current occupational status: other PM Subjective & Objective Subjective Subjective:: Patient is a pleasant 53-year-old female who presents today for follow-up. Today she rates her pain a 9 out of 10. Patient states she has chronic pain still throughout her low back and does go into her bilateral lower extremities. Patient denies any new trauma or injury. Patient does state that she did end up seeing Dr. Montoya's other provider Dr. Zapata. She states that he did end up sending her to see an additional provider in [place] and that they are recommending surgery however he does want her to lose some weight and quit smoking. She states that she is scheduled to follow-up with this office on September 28 and that the plan is for her to meet with anesthesia to review over her respiratory issues and that the plan would be surgery sometime after New Year's. Patient also states that she did have updated imaging and that she is now considered a borderline diabetic and is on metformin. Patient is managed from our office with methocarbamol 1000 mg 3 times a day and pregabalin from an outside provider. She does state today that that provider had discussed with possibly having our office take over this medication. Her Sergio has been reviewed and is appropriate Review of Systems: General: No recent weight changes, no fever, no sleep disturbances Respiratory: No cough, no shortness of air, no recurring pulmonary infections Cardiovascular/peripheral vascular: No chest pain, no palpitations, no edema, no shortness of breath Gastrointestinal: No new onset incontinence, normal bowel movements reported Genitourinary: No new onset incontinence Musculoskeletal: Low back pain, leg pain Psychiatric: [Normal mood/affect] Neurological: [Denies weakness in extremities], [denies balance issues] Pain at rest (0-10 scale): 9 Objective Objective:: Physical Exam: General: Alert and oriented x3, no acute distress, pleasant and cooperative Lungs: Respirations even and unlabored, symmetrical chest expansion Eyes: PERRL Musculoskeletal: Flexion and extension of lumbar [spine] somewhat guarded secondary to pain, [antalgic gait noted] Neurological: Speech clear, no gross sensory deficit Has patient had previous pain injection?: No Conservative treatment options previously tried: Home exercise plan Length of treatment: Longer than 12 weeks Meds Home Medications and Allergies Home Medications ?Medication ?Instructions ?Recorded ?Confirmed ?Type albuterol sulfate 2.5 mg/3 mL 2.5 mg inhalation QID 11/28/23 04/07/24 History (0.083 %) solution for nebulization budesonide-formoterol HFA 160 2 puff inhalation BID 11/28/23 04/07/24 History mcg-4.5 mcg/actuation aerosol inhaler budesonide-formoterol HFA 160 2 puff inhalation BID 11/28/23 04/07/24 History mcg-4.5 mcg/actuation aerosol inhaler (Symbicort) cholecalciferol (vitamin D3) 50 50 mcg PO DAILY 11/28/23 04/07/24 History mcg (2,000 unit) capsule cyanocobalamin (vitamin B-12) 1,000 mcg PO DAILY 11/28/23 04/07/24 History 1,000 mcg tablet (Vitamin B-12) duloxetine 60 mg capsule,delayed 60 mg PO BID 11/28/23 04/07/24 History release ergocalciferol (vitamin D2) 1,250 1,250 mcg PO DAILY 11/28/23 04/07/24 History mcg (50,000 unit) capsule hydrochlorothiazide 25 mg tablet 25 mg PO DAILY 11/28/23 04/07/24 History hydroxyzine pamoate 100 mg capsule 100 mg PO TIDP PRN Anxiety 11/28/23 04/07/24 History ipratropium 0.5 mg-albuterol 3 mg 3 ml inhalation TIDP PRN SOA 11/28/23 04/07/24 History (2.5 mg base)/3 mL nebulization soln loratadine 10 mg tablet (Allergy 10 mg PO DAILY 11/28/23 04/07/24 History Relief (loratadine)) montelukast 10 mg tablet 10 mg PO DAILY 11/28/23 04/07/24 History omeprazole 40 mg capsule,delayed 40 mg PO AC 11/28/23 04/07/24 History release potassium chloride 20 mEq 20 meq PO BID 11/28/23 04/07/24 History tablet,extended release pregabalin 100 mg capsule 100 mg PO TID 11/28/23 04/07/24 History ropinirole 5 mg tablet 5 mg PO HS 11/28/23 04/07/24 History rosuvastatin 5 mg tablet 10 mg PO HS 11/28/23 04/07/24 History ziprasidone HCl 60 mg capsule 60 mg PO BID 11/28/23 04/07/24 History (Geodon) alendronate 35 mg tablet 35 mg PO WEEKLY 03/16/24 04/07/24 History methocarbamol 750 mg tablet 750 mg PO QID 03/16/24 04/07/24 History methocarbamol 500 mg tablet 1,000 mg (2 x 500 mg) PO TID #180 04/07/24 Rx tabs methocarbamol 500 mg tablet 1,000 mg (2 x 500 mg) PO TID #180 06/09/24 Rx tabs methocarbamol 500 mg tablet 1,000 mg (2 x 500 mg) PO TID #180 08/25/24 Rx tabs New Prescriptions to Start Prescriptions: Allergies Allergy/AdvReac Type Severity Reaction Status Date / Time amoxicillin Allergy Verified 11/28/23 11:33 aspirin Allergy Verified 11/28/23 11:33 azithromycin Allergy Verified 11/28/23 11:33 bupropion Allergy Verified 11/28/23 11:33 celecoxib Allergy Verified 11/28/23 11:33 cephalexin Allergy Verified 11/28/23 11:33 clavulanic acid Allergy Verified 11/28/23 11:33 doxepin Allergy Verified 11/28/23 11:33 escitalopram Allergy Verified 11/28/23 11:33 fentanyl Allergy Verified 11/28/23 11:33 fluoxetine Allergy Verified 11/28/23 11:33 guaifenesin Allergy Verified 11/28/23 11:33 haloperidol Allergy Verified 11/28/23 11:33 levofloxacin Allergy Verified 11/28/23 11:33 lidocaine Allergy Verified 11/28/23 11:33 lithium Allergy Verified 11/28/23 11:33 meclizine Allergy Verified 11/28/23 11:33 ondansetron Allergy Verified 11/28/23 11:33 paroxetine Allergy Verified 11/28/23 11:33 pentazocine Allergy Verified 11/28/23 11:33 phenelzine Allergy Verified 11/28/23 11:33 quetiapine Allergy Verified 11/28/23 11:33 quinine Allergy Verified 11/28/23 11:33 ranitidine Allergy Verified 11/28/23 11:33 sertraline Allergy Verified 11/28/23 11:33 Sulfa (Sulfonamide Allergy Verified 11/28/23 11:33 Antibiotics) topiramate Allergy Verified 11/28/23 11:33 tramadol Allergy Verified 11/28/23 11:33 venlafaxine Allergy Verified 11/28/23 11:33 zolpidem Allergy Verified 11/28/23 11:33 naproxen AdvReac Verified 11/28/23 11:33 Assessment and Plan *Assessment and plan (1) Degenerative disc disease, lumbar: Status: Acute Category: Medical Code(s): M51.36 - Other intervertebral disc degeneration, lumbar region (2) Lumbar radiculopathy: Status: Acute Category: Medical Code(s): M54.16 - Radiculopathy, lumbar region (3) Chronic pain syndrome: Status: Acute Category: Medical Code(s): G89.4 - Chronic pain syndrome Plan I did discuss with the patient due to her worsening pain that she may benefit from a lumbar epidural however patient states where she has had injections in the past and they did not provide significant improvement. Patient does state that the best she had was with her pain medications. Patient in the past was tried for a psychological evaluation for possible pump however she was not an appropriate candidate at that time. I did discuss with the patient that in future we can always retry this option if she feels better. I will send in a 1 month supply of methocarbamol 1000 mg 4 times a day. Patient will return to clinic in 1 month for reevaluation of symptoms and plan of care. I did discuss with the patient that we would have to have something in writing from her other provider regarding the pregabalin and that there are still no guarantees that we will take this medication over. Patient has been instructed to contact the clinic with any concerns before the next appointment. Dr. Woods has reviewed this note and agrees with this plan of care. This note was dictated using voice recognition software and make contain errors or omissions. All injections are used with Lidocaine or Bupivacaine and Depo Medrol.
== END 2024-09-03 23:59 | disposition home or self-care (01) ==
PROVIDERS: PCP Family Medicine; Visit Provider Nurse Practitioner Family
DX: M51.16 Intervertebral disc disorders with radiculopathy, lumbar region (principal); G89.4 Chronic pain syndrome; F17.210 Nicotine dependence, cigarettes, uncomplicated; Z79.899 Other long term (current) drug therapy
CPT/HCPCS: 99212; G0463

== ENCOUNTER 2024-09-30 10:12 | Outpatient (POV) | payer MEDICAID, SELFPAY ==
--- NOTE | 2024-09-30 10:38 | EXP.PAIN.SOA ---
[facility] Disclaimer: The information contained in this section may have been updated after the patient was seen, as this information can be updated by other users. Medical History (Updated 07/12/24 @ 14:55 by René Eastman APRN) Bipolar 1 disorder ADHD Anxiety Fibromyalgia Osteoarthritis GERD (gastroesophageal reflux disease) Asthma COPD (chronic obstructive pulmonary disease) HLD (hyperlipidemia) Degenerative disc disease Surgical History Hx of appendectomy H/O: hysterectomy Hx of cholecystectomy History of carpal tunnel surgery Family History Other No significant family history Social History (Updated 09/03/24 @ 08:54 by Viji Ayala APRN) Smoking Status: Current every day smoker alcohol intake: never current occupational status: other Travel in the last 8 weeks: None PM Subjective & Objective Subjective Subjective:: Patient is a pleasant 53-year-old female who presents today via telehealth appointment for follow-up. This appointment is occurring at the patient's home and she has given verbal consent for this audio appointment. Today she rates her pain a 10 out of 10. Patient denies any new falls or injuries. She does state that she is just continued to have worsening pain and just feels like she is getting to the point where she has more more difficulty even walking. Patient at her last visit did discuss the possibility of pump and at that time she wanted to wait. Patient had been through a psychological evaluation in the past was not appropriate at that time. Patient does states she would like to proceed forward with this option. Patient does state that she is scheduled to see the neurosurgery department back again however that this is not until November. Patient is currently managed with methocarbamol 1000 mg 4 times a day from our office. She does state this does help a little bit. She is prescribed alprazolam and pregabalin from an outside provider. Patient has been tried on oral Lortab in the past. Her Sergio has been reviewed. Review of Systems: General: No recent weight changes, no fever, no sleep disturbances Respiratory: No cough, no shortness of air, no recurring pulmonary infections Cardiovascular/peripheral vascular: No chest pain, no palpitations, no edema, no shortness of breath Gastrointestinal: No new onset incontinence, normal bowel movements reported Genitourinary: No new onset incontinence Musculoskeletal: Low back pain Psychiatric: [Normal mood/affect] Neurological: [Denies weakness in extremities], [denies balance issues] Pain at rest (0-10 scale): 10 Objective Objective:: General: Alert and oriented x3, pleasant and cooperative Lungs: Patient is able to say complete sentences without dyspnea Neurological: Speech clear Has patient had previous pain injection?: No Conservative treatment options previously tried: Home exercise plan Length of treatment: Longer than 12 weeks Meds Home Medications and Allergies Home Medications ?Medication ?Instructions ?Recorded ?Confirmed ?Type albuterol sulfate 2.5 mg/3 mL 2.5 mg inhalation QID 11/28/23 09/03/24 History (0.083 %) solution for nebulization budesonide-formoterol HFA 160 2 puff inhalation BID 11/28/23 09/03/24 History mcg-4.5 mcg/actuation aerosol inhaler cholecalciferol (vitamin D3) 50 50 mcg PO DAILY 11/28/23 09/03/24 History mcg (2,000 unit) capsule cyanocobalamin (vitamin B-12) 1,000 mcg PO DAILY 11/28/23 09/03/24 History 1,000 mcg tablet (Vitamin B-12) duloxetine 60 mg capsule,delayed 60 mg PO BID 11/28/23 09/03/24 History release ergocalciferol (vitamin D2) 1,250 1,250 mcg PO DAILY 11/28/23 09/03/24 History mcg (50,000 unit) capsule hydrochlorothiazide 25 mg tablet 25 mg PO DAILY 11/28/23 09/03/24 History hydroxyzine pamoate 100 mg capsule 100 mg PO TIDP PRN Anxiety 11/28/23 09/03/24 History ipratropium 0.5 mg-albuterol 3 mg 3 ml inhalation TIDP PRN SOA 11/28/23 09/03/24 History (2.5 mg base)/3 mL nebulization soln loratadine 10 mg tablet (Allergy 10 mg PO DAILY 11/28/23 09/03/24 History Relief (loratadine)) montelukast 10 mg tablet 10 mg PO DAILY 11/28/23 09/03/24 History omeprazole 40 mg capsule,delayed 40 mg PO AC 11/28/23 09/03/24 History release potassium chloride 20 mEq 20 meq PO BID 11/28/23 09/03/24 History tablet,extended release pregabalin 100 mg capsule 100 mg PO TID 11/28/23 09/03/24 History ropinirole 5 mg tablet 5 mg PO HS 11/28/23 09/03/24 History rosuvastatin 5 mg tablet 10 mg PO HS 11/28/23 09/03/24 History ziprasidone HCl 60 mg capsule 60 mg PO BID 11/28/23 09/03/24 History (Geodon) alendronate 35 mg tablet 35 mg PO WEEKLY 03/16/24 09/03/24 History methocarbamol 500 mg tablet 1,000 mg (2 x 500 mg) PO TID #180 06/09/24 09/03/24 Rx tabs methocarbamol 500 mg tablet 1,000 mg (2 x 500 mg) PO QID #240 09/03/24 Rx tabs methocarbamol 500 mg tablet 1,000 mg (2 x 500 mg) PO TID #180 09/29/24 Rx tabs New Prescriptions to Start Prescriptions: Allergies Allergy/AdvReac Type Severity Reaction Status Date / Time amoxicillin Allergy Verified 11/28/23 11:33 aspirin Allergy Verified 11/28/23 11:33 azithromycin Allergy Verified 11/28/23 11:33 bupropion Allergy Verified 11/28/23 11:33 celecoxib Allergy Verified 11/28/23 11:33 cephalexin Allergy Verified 11/28/23 11:33 clavulanic acid Allergy Verified 11/28/23 11:33 doxepin Allergy Verified 11/28/23 11:33 escitalopram Allergy Verified 11/28/23 11:33 fentanyl Allergy Verified 11/28/23 11:33 fluoxetine Allergy Verified 11/28/23 11:33 guaifenesin Allergy Verified 11/28/23 11:33 haloperidol Allergy Verified 11/28/23 11:33 levofloxacin Allergy Verified 11/28/23 11:33 lidocaine Allergy Verified 11/28/23 11:33 lithium Allergy Verified 11/28/23 11:33 meclizine Allergy Verified 11/28/23 11:33 ondansetron Allergy Verified 11/28/23 11:33 paroxetine Allergy Verified 11/28/23 11:33 pentazocine Allergy Verified 11/28/23 11:33 phenelzine Allergy Verified 11/28/23 11:33 quetiapine Allergy Verified 11/28/23 11:33 quinine Allergy Verified 11/28/23 11:33 ranitidine Allergy Verified 11/28/23 11:33 sertraline Allergy Verified 11/28/23 11:33 Sulfa (Sulfonamide Allergy Verified 11/28/23 11:33 Antibiotics) topiramate Allergy Verified 11/28/23 11:33 tramadol Allergy Verified 11/28/23 11:33 venlafaxine Allergy Verified 11/28/23 11:33 zolpidem Allergy Verified 11/28/23 11:33 naproxen AdvReac Verified 11/28/23 11:33 Assessment and Plan *Assessment and plan (1) Lumbar spinal stenosis: Status: Acute Qualifiers: Neurogenic claudication status: with neurogenic claudication Qualified Code(s): M48.062 - Spinal stenosis, lumbar region with neurogenic claudication Category: Medical Code(s): M48.061 - Spinal stenosis, lumbar region without neurogenic claudication (2) Chronic pain syndrome: Status: Acute Category: Medical Code(s): G89.4 - Chronic pain syndrome (3) Degenerative disc disease, lumbar: Status: Acute Category: Medical Code(s): M51.369 - Other intervertebral disc degeneration, lumbar region without mention of lumbar back pain or lower extremity pain Plan I did review over the risk and benefits of the pain pump trial and she would like to proceed forward with this plan of care. Patient was counseled that I will order the psychological evaluation and if she is deemed an appropriate candidate we will proceed forward with this option at a later date. I will refill the patient's methocarbamol and provide a 2-month supply of this medication. Patient will return to clinic in 6 weeks via an office appointment for reevaluation of symptoms and plan of care. This visit did occur from [id number]. Patient has been instructed to contact the clinic with any concerns before the next appointment. Dr. Woods has reviewed this note and agrees with this plan of care. This note was dictated using voice recognition software and make contain errors or omissions. All injections are used with Lidocaine, Bupivacaine and Depo Medrol. Occasionally urine drug screen is needed to verify patient's compliance with our office pain contract. This is ordered based off specific treatments related to chronic pain with the potential to abuse certain medications.
== END 2024-09-30 23:59 | disposition home or self-care (01) ==
PROVIDERS: Visit Provider Nurse Practitioner Family
DX: M48.062 Spinal stenosis, lumbar region with neurogenic claudication (principal); G89.4 Chronic pain syndrome; M51.369 Other intervertebral disc degeneration, lumbar region without mention of lumbar back pain or lower extremity pain; Z79.899 Other long term (current) drug therapy; F17.210 Nicotine dependence, cigarettes, uncomplicated
CPT/HCPCS: 99212; G0463